=== PATIENT | male | born 1990 | race Caucasian/White ===

== ENCOUNTER 2018-05-23 23:38 | Emergency (ER) | payer BC, OTHER ==
[2018-05-23 23:56] VITALS: BMI 36.9
--- NOTE | 2018-05-23 23:58 | PDOC ---
History of Present Illness - General History Source: Patient - History of Present Illness Initial Comments: 05/24/18 00:58 27 year old male left sided chest pain and pressure with pain to the left arm since 9 pm, patient also reported diaphoresis and nausea at the time of event, now has resolved. patient reports slight chest pressure at this time. denies pelruitic chest pain . no pmhx grandfather with history of CHF. no cardiac / sudden deaths in family, 05/24/18 01:24 <Marisabel Arnold - Last Filed: 05/24/18 05:32> <Yissel Caballero - Last Filed: 05/24/18 06:25> - General Chief Complaint: Chest Pain Stated Complaint: CHEST PAIN Time Seen by Provider: 05/23/18 23:58 Past History - Past Medical History Cardiac Disorders: No (murmur) - Suicide/Smoking/Psychosocial Hx Smoking History: Never smoked Have you smoked in the past 12 months: No Information on smoking cessation initiated: No Hx Alcohol Use: No Drug/Substance Use Hx: No <Marisabel Arnold - Last Filed: 05/24/18 05:32> <Yissel Caballero - Last Filed: 05/24/18 06:25> - Past Medical History Allergies/Adverse Reactions: Allergies Allergy/AdvReac Type Severity Reaction Status Date / Time No Known Allergies Allergy Verified 05/23/18 23:56 *Physical Exam - Vital Signs Last Vital Signs Temp Pulse Resp BP Pulse Ox 98.1 F 112 H 18 168/103 H 100 05/23/18 23:53 05/23/18 23:53 05/23/18 23:53 05/23/18 23:53 05/23/18 23:53 - Physical Exam General Appearance: Yes: Appropriately Dressed Respiratory/Chest: positive: Lungs Clear, Normal Breath Sounds Cardiovascular: positive: Regular Rhythm, Regular Rate, Murmur Gastrointestinal/Abdominal: positive: Normal Bowel Sounds, Soft. negative: Tender Extremity: positive: Normal Capillary Refill, Normal Inspection, Normal Range of Motion Integumentary: positive: Normal Color, Dry, Warm Neurologic: positive: Fully Oriented, Alert, Normal Mood/Affect <Marisabel Arnold - Last Filed: 05/24/18 05:32> - Vital Signs Last Vital Signs Temp Pulse Resp BP Pulse Ox 98.1 F 101 H 18 168/103 H 100 05/23/18 23:53 05/24/18 00:02 05/23/18 23:53 05/23/18 23:53 05/24/18 00:02 <Yissel Caballero - Last Filed: 05/24/18 06:25> Moderate Sedation - Procedure Monitoring Vital Signs: Procedure Monitoring Vital Signs Temperature 98.1 F 05/23/18 23:53 Pulse Rate 112 H 05/23/18 23:53 Respiratory Rate 18 05/23/18 23:53 Blood Pressure 168/103 H 05/23/18 23:53 O2 Sat by Pulse Oximetry (%) 100 05/23/18 23:53 <Marisabel Arnold - Last Filed: 05/24/18 05:32> - Procedure Monitoring Vital Signs: Procedure Monitoring Vital Signs Temperature 98.1 F 05/23/18 23:53 Pulse Rate 101 H 05/24/18 00:02 Respiratory Rate 18 05/23/18 23:53 Blood Pressure 168/103 H 05/23/18 23:53 O2 Sat by Pulse Oximetry (%) 100 05/24/18 00:02 <Yissel Caballero - Last Filed: 05/24/18 06:25> Heart Score/ECG Review - History History: Slightly suspicious - Electrocardiogram EKG: Normal - Age Age: </= 46 - Risk Factors Based on the list above the patient has:: No risk factors known - Troponin Troponin: </= normal limit - Score Heart Score - Total: 0 - ECG Intrepretation Rhythm: Regular Rhythm <Marisabel Arnold - Last Filed: 05/24/18 05:32> ED Treatment Course - LABORATORY CBC & Chemistry Diagram: 05/24/18 01:00 05/24/18 00:55 <Marisabel Arnold - Last Filed: 05/24/18 05:32> - LABORATORY CBC & Chemistry Diagram: 05/24/18 01:00 05/24/18 00:55 - ADDITIONAL ORDERS Additional order review: Laboratory Results 05/24/18 05/24/18 05/24/18 00:55 00:55 00:55 PT with INR 12.00 INR 1.02 D-Dimer < 215 Sodium 137 Potassium 3.8 Chloride 102 Carbon Dioxide 27 Anion Gap 8 BUN 16 Creatinine 1.2 Creat Clearance w eGFR > 60 Random Glucose 92 Calcium 8.9 Magnesium 2.1 Total Bilirubin 0.3 AST 22 ALT 41 Alkaline Phosphatase 51 Creatine Kinase 139 Troponin I < 0.02 Total Protein 8.0 Albumin 4.1 05/24/18 01:00 RBC 4.60 MCV 88.7 MCHC 35.4 RDW 13.8 MPV 7.5 Neutrophils % 71.5 Lymphocytes % 17.2 Monocytes % 10.5 H Eosinophils % 0.4 Basophils % 0.4 - Medications Given in the ED: ED Medications Discontinued Medications Generic Name Dose Route Start Last Admin Trade Name Rachael PRN Reason Stop Dose Admin Aspirin 162 mg 05/24/18 00:02 05/24/18 01:05 Asa - PO 05/24/18 00:03 162 mg ONCE ONE Administration <Yissel Caballero - Last Filed: 05/24/18 06:25> Medical Decision Making - Medical Decision Making 05/24/18 01:34 Chest pain P; labs troponin <Marisabel Arnold - Last Filed: 05/24/18 05:32> - Medical Decision Making The patient was seen and evaluated in conjunction with midlevel provider under my direct supervision, ancillary studies were reviewed. I agree with the plan as outlined by JAY Arnold. HPI as outlined. PE: well appearing, anxious. eomi/perrl. neck supple, tachy, clear lungs, abdomen obese, nontender. WWP, no edema, FLOYD x4. EKG sinus tachycardia, normal intervals, narrow regular QRS complexes. otherwise no prior and nonischemic. labs and trop x1 neg. dimer neg, so unlikely PE or dissection. HEART score low, 1, so low risk for MACE at 1 month. results provided to patient feels more comfortable and better. VS rechecked, normalizing likely anxiety component/minimize stressors while at bedside, he has fluctuating HR from tachy, down to 90s when more relaxed. BP downtrended to 145/80 2nd trop and EKG neg, unchanged. given some xanax here, with improvement of his anxiety related sx dispo: DC in stable condition,r eturn precautions given. PCP followup for repeat VS/BP check. 05/24/18 01:45 05/24/18 06:24 <Yissel Caballero - Last Filed: 05/24/18 06:25> *DC/Admit/Observation/Transfer <Marisabel Arnold - Last Filed: 05/24/18 05:32> <Yissel Caballero - Last Filed: 05/24/18 06:25> Diagnosis at time of Disposition: Chest pain Qualifiers: Chest pain type: other chest pain Qualified Code(s): R07.89 - Other chest pain - Discharge Dispostion Disposition: HOME Condition at time of disposition: Stable - Referrals Referrals: Kelton Sterling MD [Staff Physician] - Call tomorrow - Patient Instructions Printed Discharge Instructions: DI for Atypical Chest Pain Additional Instructions: please follow up with primary care physician and [employer] services field supervisor. return to the ER if symptoms worsen. - Post Discharge Activity Forms/Work/School Notes: Back to Work
[2018-05-24] MEDS ORDERED: ASPIRIN 81 MG CHEWABLE TABLETS PO ONE (00:02)
[2018-05-24] MEDS ORDERED: ASPIRIN 81 MG CHEWABLE TABLETS ONE (01:00)
[2018-05-24 01:16] LABS: BASO % 0.4 % (0-2.0); EOS % 0.4 % (0-4.5); HEMATOCRIT 40.8 % (35.4-49); HEMOGLOBIN 14.4 GM/dL (11.7-16.9); LYMPH % 17.2 % (8-40); MCH 31.4 pg (25.7-33.7); MCHC 35.4 g/dl (32.0-35.9); MEAN CELL VOLUME 88.7 fl (80-96); MEAN PLT VOLUME 7.5 fl (7.5-11.1); MONO % 10.5 % (3.8-10.2); NEUT % 71.5 % (42.8-82.8); PLATELET COUNT 291 K/MM3 (134-434); RDW 13.8 % (11.9-15.9); WHITE BLOOD COUNT 10.7 K/mm3 (4.0-10.0)
[2018-05-24 01:31] LABS: INR 1.02 (0.83-1.09)
[2018-05-24 01:40] LABS: ALBUMIN 4.1 g/dl (3.4-5.0); ALK PHOS 51 U/L (45-117); ANION GAP 8 MMOL/L (8-16); BILIRUBIN,TOTAL 0.3 mg/dL (0.2-1); BLOOD UREA NITROGEN 16 mg/dL (7-18); CALCIUM 8.9 mg/dL (8.5-10.1); CHLORIDE 102 mmol/L (98-107); CO2 27 mmol/L (21-32); CREATININE 1.2 mg/dL (0.55-1.3); GLUCOSE,RANDOM 92 mg/dL (74-106); MAGNESIUM 2.1 mg/dL (1.8-2.4); POTASSIUM 3.8 mmol/L (3.5-5.1); SGOT/AST 22 U/L (15-37); SGPT/ALT 41 U/L (13-61); SODIUM 137 mmol/L (136-145)
[2018-05-24] MEDS ORDERED: ALPRAZolam 0.25 MG TABLET PO ONE (01:55)
[2018-05-24] MEDS ORDERED: ALPRAZolam 0.25 MG TABLET ONE (02:15)
[2018-05-24 05:37] VITALS: BP 141/87; PULSE 88; TEMP 98.4
--- NOTE | 2018-05-24 09:49 | EKG ---
Test Reason : Blood Pressure : / mmHG Vent. Rate : 091 BPM Atrial Rate : 091 BPM P-R Int : 166 ms QRS Dur : 100 ms QT Int : 358 ms P-R-T Axes : 032 040 031 degrees QTc Int : 440 ms NORMAL SINUS RHYTHM NORMAL ECG NO PREVIOUS ECGS AVAILABLE Confirmed by RONAK CONNORS MD ([id number]) on 05/24/2018 9:49:17 AM Referred By: Confirmed By:RONAK CONNORS MD
--- NOTE | 2018-05-26 10:22 | EKG ---
Test Reason : Blood Pressure : / mmHG Vent. Rate : 103 BPM Atrial Rate : 103 BPM P-R Int : 174 ms QRS Dur : 102 ms QT Int : 346 ms P-R-T Axes : 043 057 045 degrees QTc Int : 453 ms SINUS TACHYCARDIA INCOMPLETE RIGHT BUNDLE BRANCH BLOCK BORDERLINE ECG NO PREVIOUS ECGS AVAILABLE Confirmed by WAYLON HARLEY, RONAK ([id number]) on 05/26/2018 10:22:13 AM Referred By: Confirmed By:RONAK CONNORS MD
== END 2018-05-24 05:30 | disposition home or self-care (01) ==
LOC: JER 23:38
DX: R07.89 Other chest pain (principal); R01.1 Cardiac murmur, unspecified
CPT/HCPCS: 36415; 71046-TC-FY; 80053; 82550; 83735; 84484; 85025; 85379; 85610; 93005; 93010; 99284-25

== ENCOUNTER 2023-10-09 21:04 | Emergency (ER) | payer OTHER ==
[2023-10-09 21:17] VITALS: BP 159/91; PULSE 112; RESP 16; TEMP 98.2; BMI 30.5
[2023-10-09] MEDS: IBUPROFEN 600 MG TABLET (FP) PO ONE (21:36)
[2023-10-09] MEDS ORDERED: IBUPROFEN 600 MG TABLET (FP) PO ONE (21:37)
== END 2023-10-09 21:42 | disposition home or self-care (01) ==
LOC: FER 21:04
DX: S80.01XA Contusion of right knee, initial encounter (principal); S50.01XA Contusion of right elbow, initial encounter; S80.212A Abrasion, left knee, initial encounter; S60.415A Abrasion of left ring finger, initial encounter; S60.413A Abrasion of left middle finger, initial encounter; W01.0XXA Fall on same level from slipping, tripping and stumbling without subsequent striking against object, initial encounter
CPT/HCPCS: 99283-25